=== PATIENT | female | born 1970 | race Caucasian/White ===

== ENCOUNTER 2022-10-28 11:03 | Emergency (ER) | payer OTHER ==
[2022-10-28 12:07] LABS: BASOPHILS ABSOLUTE AUTO 0.02 K/mm3 (0.01-0.08); BASOPHILS PERCENT AUTO 0.2 % (0.1-1.2); EOSINOPHILS ABSOLUTE AUTO 0.26 K/mm3 (0.04-0.36); EOSINOPHILS PERCENT AUTO 2.4 (0.7-5.8); HEMATOCRIT 40.5 % (34.1-44.9); HEMOGLOBIN 13.3 gm/dl (11.2-15.7); IMMATURE GRAN ABSOLUTE AUTO 0.02 K/mm3 (0.00-0.10); IMMATURE GRAN PERCENT AUTO 0.2 % (<=1.0); LYMPHOCYTES ABSOLUTE AUTO 1.91 K/mm3 (1.18-3.74); LYMPHOCYTES PERCENT AUTO 17.9 % (19.3-51.7); MEAN CORPUSCULAR HEMOGLOBIN 28.7 pg (25.6-32.2); MEAN CORPUSCULAR HGB CONC 32.8 g/dl (32.2-35.5); MEAN CORPUSCULAR VOLUME 87.3 fl (79.4-94.8); MONOCYTES ABSOLUTE AUTO 0.45 K/mm3 (0.24-0.36); MONOCYTES PERCENT AUTO 4.2 % (4.7-12.5); NEUTROPHILS ABSOLUTE AUTO 8.02 K/mm3 (1.56-6.13); NEUTROPHILS PERCENT AUTO 75.1 % (34.0-71.1); PLATELET COUNT,PLT 321 K/mm3 (182-369); RED BLOOD CELL COUNT 4.64 M/mm3 (3.98-5.22); WHITE BLOOD CELL COUNT,WBC 10.68 K/mm3 (3.98-10.04)
[2022-10-28 12:41] LABS: A/G RATIO 1.2 (1-2); ALBUMIN 3.7 g/dl (3.4-5.0); ANION GAP 10.3 (5-15); BILIRUBIN TOTAL 0.4 mg/dL (0.2-1.0); BUN/CREATININE RATIO 21.4 (14-18); CALCIUM 8.8 mg/dL (8.5-10.1); CREATININE 0.7 mg/dL (0.55-1.02); EST CRCL DRUG DOSING (CG) 93.5 mL/min; POTASSIUM,K 4.3 mEq/L (3.5-5.1); PROTEIN TOTAL,TP 6.9 g/dl (6.4-8.2); TSH 1.291 uIU/mL (0.358-3.74)
== END 2022-10-28 14:34 | disposition home or self-care (01) ==
LOC: JD.ED 11:03
DX: N93.9 Abnormal uterine and vaginal bleeding, unspecified (principal); E11.9 Type 2 diabetes mellitus without complications; E66.9 Obesity, unspecified; Z68.41 Body mass index [BMI] 40.0-44.9, adult; Z86.16 Personal history of COVID-19
CPT/HCPCS: 36415; 76856; 76856-26; 80053; 84443; 84703; 85025; 99284

== ENCOUNTER 2023-08-13 12:49 | Emergency (ER) | payer OTHER ==
[2023-08-13] MEDS: Diltiazem 25 MG/5 ML SDV IVPUSH ONE ×2 (13:05→13:23)
[2023-08-13] MEDS: Adenosine 12 MG/4 ML SDV ONE (13:12)
[2023-08-13] MEDS: Diltiazem 25 MG/5 ML SDV ONE (13:12)
[2023-08-13 13:57] LABS: BASOPHILS PERCENT AUTO 0.3 % (0.0-1.0); EOSINOPHILS ABSOLUTE AUTO 0.1 K/mm3 (0.0-0.4); HEMATOCRIT 41.5 % (37.0-47.0); HEMOGLOBIN 13.6 gm/dl (12.0-16.0); IMMATURE GRAN ABSOLUTE AUTO 0.03 K/mm3 (0.00-0.05); IMMATURE GRAN PERCENT AUTO 0.2 % (0.0-0.4); LYMPHOCYTES ABSOLUTE AUTO 2.5 K/mm3 (1.0-4.8); LYMPHOCYTES PERCENT AUTO 20.1 % (24.0-44.0); MEAN CORPUSCULAR HEMOGLOBIN 26.2 pg (28.0-32.0); MEAN CORPUSCULAR HGB CONC 32.8 g/dl (32.0-36.0); MEAN CORPUSCULAR VOLUME 79.8 fl (83.0-99.0); MEAN PLATELET VOLUME 10.3 fl (9.4-12.3); MONOCYTES ABSOLUTE AUTO 0.5 K/mm3 (0.0-0.8); MONOCYTES PERCENT AUTO 4.2 % (0.0-8.0); NEUTROPHILS ABSOLUTE AUTO 9.3 K/mm3 (1.8-7.7); NEUTROPHILS PERCENT AUTO 74.2 % (41.0-71.0); PLATELET COUNT,PLT 405 K/mm3 (150-400); WHITE BLOOD CELL COUNT,WBC 12.51 K/mm3 (3.9-11.3)
[2023-08-13 14:27] LABS: A/G RATIO 1.2 (1-2); ALBUMIN 4.5 g/dl (3.4-5.0); BILIRUBIN TOTAL 0.7 mg/dL (0.2-1.0); CALCIUM 9.3 mg/dL (8.5-10.1); CREATININE 0.8 mg/dL (0.55-1.02); EST CRCL DRUG DOSING (CG) 86.94 mL/min; MAGNESIUM 1.9 mg/dL (1.8-2.4); PROTEIN TOTAL,TP 8.3 g/dl (6.4-8.2); TSH 1.262 uIU/mL (0.358-3.74)
[2023-08-13 14:45] LABS: ANION GAP 15.6 (5-15)
[2023-08-13 14:47] LABS: POTASSIUM,K 3.6 mEq/L (3.5-5.1)
[2023-08-13] MEDS: Acetaminophen 325 MG Tab PO ONE (18:50)
== END 2023-08-13 18:49 | disposition home or self-care (01) ==
LOC: JD.ED 12:49
DX: I47.10 Supraventricular tachycardia, unspecified (principal); E11.9 Type 2 diabetes mellitus without complications; E03.9 Hypothyroidism, unspecified; E66.9 Obesity, unspecified; Z86.16 Personal history of COVID-19; Z79.899 Other long term (current) drug therapy; Z91.040 Latex allergy status; Z68.29 Body mass index [BMI] 29.0-29.9, adult
CPT/HCPCS: 36415; 80053; 83735; 84443; 84484; 85025; 93005; 96374; 99285; J3490; 93010; 99284

== ENCOUNTER 2025-02-07 19:51 | Emergency (ER) | payer OTHER ==
[2025-02-07] MEDS: Acetaminophen/oxyCODONE 325-5 MG Tab PO ONE (20:35)
[2025-02-07] MEDS: Ondansetron 4 MG Tab.DIS PO ONE (20:36)
[2025-02-07] MEDS: Ketorolac 60 MG/2 ML SDV IM ONE (20:36)
== END 2025-02-07 22:19 | disposition home or self-care (01) ==
LOC: JD.ED 19:51
DX: G43.909 Migraine, unspecified, not intractable, without status migrainosus (principal); F41.9 Anxiety disorder, unspecified; E11.9 Type 2 diabetes mellitus without complications; E03.9 Hypothyroidism, unspecified; E66.9 Obesity, unspecified; Z68.38 Body mass index [BMI] 38.0-38.9, adult; Z86.16 Personal history of COVID-19; Z91.040 Latex allergy status; Z88.2 Allergy status to sulfonamides
CPT/HCPCS: 70450; 99284; A9270